=== PATIENT | female | born 1955 | race Caucasian/White ===

== ENCOUNTER 2019-05-21 21:10 | Emergency (ER) | payer BC, OTHER ==
[2019-05-21] MEDS ORDERED: HYDROMORPHONE HCL 2 MG/ML VIAL IM ONE (21:20)
--- NOTE | 2019-05-21 21:29 | Emergency Department Record ---
History of Present Illness - General Chief Complaint: Back Pain/Injury Stated Complaint: BACK PAIN Time Seen by Provider: 05/21/19 21:11 Source: Patient Mode of Arrival: Ambulatory Limitations: No limitations - History of Present Illness Initial Comments: 63 yo female presents to ED for evaluation of worsening mid-back pain symptoms. Patient denies injury, however patient reports that she saw her surgeon at [facility] for flexion/extension views of the spine earlier today,w as told that she had "excessive movement" in the spine resulting in her pain symptoms. Patient is s/p fusion from L2-S1 as well, and is scheduled for surgery in 1 week. Patient reports that neither her PCP or her surgeon will treat her pain symptoms with anything stronger than Ibuprofen until her surgey in 1 week. MD Complaint: Back pain Onset/Timin -: Month(s) Similar Symptoms Previously: Yes Severity scale (1-10): 10 Quality: Sharp, Stabbing Consistency: Constant Improves With: None Worsens With: Movement Context: Other Associated Symptoms: Denies other symptoms Treatments Prior to Arrival: NSAIDS - Related Data Home Medications Medication Instructions Recorded Confirmed Last Taken Alendronate Sodium [Fosamax] 70 mg PO WEEKLY 05/21/19 05/21/19 05/18/19 Clonazepam [Klonopin] 0.5 mg PO TID PRN 05/21/19 05/21/19 05/21/19 Gabapentin [Neurontin] 400 mg PO QID 05/21/19 05/21/19 05/21/19 Venlafaxine HCl [Effexor Xr] 225 mg PO DAILY 05/21/19 05/21/19 05/21/19 Allergies Allergy/AdvReac Type Severity Reaction Status Date / Time ketorolac [From Toradol] Allergy RASH Verified 05/21/19 21:23 sertraline HCl [From Zoloft] Allergy RASH Verified 05/10/17 13:19 Sulfa (Sulfonamide Allergy RASH Verified 05/10/17 13:19 Antibiotics) morphine AdvReac RASH Verified 05/21/19 21:23 omeprazole AdvReac mouth sores Verified 05/10/17 13:19 Travel Screening - Travel/Exposure Within Last 30 Days Have you traveled within the last 30 days?: No - Travel/Exposure Within Last Year Have you traveled outside the [place] in the last year?: No - Additonal Travel Details Have you been exposed to anyone with a communicable illness?: No - Travel Symptoms Symptom Screening: None Review of Systems Constitutional: Denies: Chills, Fever, Malaise, Night sweats Eyes: Denies: Eye discharge, Eye pain ENT: Denies: Congestion, Ear pain, Epistaxis Respiratory: Denies: Cough, Dyspnea Cardiovascular: Denies: Chest pain, Dyspnea on exertion Endocrine: Denies: Fatigue, Heat or cold intolerance Gastrointestinal: Denies: Abdominal pain, Nausea, Vomiting Genitourinary: Denies: Incontinence, Retention Musculoskeletal: Reports: Back pain. Denies: Arthralgia, Gout, Joint swelling Skin: Denies: Bruising, Change in color Neurological: Denies: Abnormal gait, Confusion, Headache, Seizure Psychiatric: Denies: Anxiety Hematological/Lymphatic: Denies: Anemia, Blood Clots Past Medical History - SOCIAL HISTORY Smoking Status: Light tobacco smoker (<10/day) Alcohol Use: None Drug Use: None - RESPIRATORY Hx Respiratory Disorders: No - CARDIOVASCULAR Hx Cardio Disorders: No Hx Hypertension: Yes - NEURO Hx Neuro Disorders: No - GI Hx GI Disorders: No - Hx Genitourinary Disorders: No - ENDOCRINE Hx Endocrine Disorders: No - MUSCULOSKELETAL Hx Musculoskeletal Disorders: Yes Hx Arthritis: Yes Hx Fibromyalgia: Yes - PSYCH Hx Psych Problems: No - HEMATOLOGY/ONCOLOGY Hx Hematology/Oncology Disorders: No Family Medical History Any Significant Family History?: Yes Hx Heart Disease: Father, Brother/Sister Physical Exam - General General Appearance: Alert, Oriented x3, Cooperative, Mild distress Limitations: No limitations - Head Head exam: Atraumatic, Normocephalic, Normal inspection Head exam detail: negative: Abrasion, Contusion, Bowers's sign, General tenderness, Hematoma, Laceration - Eye Eye exam: Normal appearance. negative: Conjunctival injection, Periorbital swelling, Periorbital tenderness, Scleral icterus - ENT Ear exam: negative: Auricular hematoma, Auricular trauma Nasal Exam: negative: Active bleeding, Discharge, Dried blood, Foreign body Mouth exam: negative: Drooling, Laceration, Muffled voice, Tongue elevation - Neck Neck exam: Normal inspection. negative: Meningismus, Tenderness - Respiratory Respiratory exam: Normal lung sounds bilaterally. negative: Rales, Respiratory distress, Rhonchi, Stridor - Cardiovascular Cardiovascular Exam: Regular rate, Normal rhythm, Normal heart sounds - GI/Abdominal GI/Abdominal exam: Soft. negative: Rebound, Rigid, Tenderness - Rectal Rectal exam: Deferred - exam: Deferred - Extremities Extremities exam: negative: Pedal edema, Tenderness - Back Back exam: Reports: Tenderness (Mild diffuse midline tenderness to palpation from lower cervical region to the lower thoracic region on examination.). Denies: CVA tenderness (R), CVA tenderness (L) - Neurological Neurological exam: Alert, Normal gait, Oriented X3 - Psychiatric Psychiatric exam: Normal affect, Normal mood - Skin Skin exam: Normal color. negative: Abrasion Type of lesion: negative: abrasion Course Vital Signs 05/21/19 21:15 Temperature 98.2 F Pulse Rate [ 92 H Pulse Ox Probe] Respiratory 20 Rate Blood Pressure 144/106 [Left Arm] Pulse Ox 97 - Reevaluation(s) Reevaluation #1: 05/21/19 21:28 MAPS was reviewed: Clonezapam 0.5 mg #90 filled 05/01 Reevaluation #2: 05/21/19 22:01 Patient was reassessed, resting comfortably watching television on her mobile phone. Patient appears stable for discharge with instructions to follow-up with her spine surgeon tomorrow for further recommendations on control of her chronic back pain symptoms. Patient appears stable for discharge at this time. Disposition Disposition: Discharge Clinical Impression: Chronic back pain Qualifiers: Back pain location: thoracic back pain Back pain laterality: midline Qualified Code(s): M54.6 - Pain in thoracic spine Disposition: Home, Self-Care Condition: (2) Stable Instructions: Degenerative Disc Disease (ED) Additional Instructions: Return to ED if your symptoms worsen or if you have any concerns. Follow-up with your family doctor in 3-5 days as directed. Forms: Patient Portal Access Time of Disposition: 21:29 Quality - Quality Measures Quality Measures: N/A - Blood Pressure Screening Does Patient Have Any of the Following: No Blood Pressure Classification: Hypertensive Reading Systolic Measurement: 144 Diastolic Measurement: 106 Screening for High Blood Pressure: < First Hypertensive BP, F/U Documented > [G8950] First Hypertensive Follow-up Interventions: Referral to alternative/primary care provider.
== END 2019-05-21 22:15 | disposition home or self-care (01) ==
LOC: ER 21:10
DX: G89.29 Other chronic pain (principal); M54.6 Pain in thoracic spine; Z98.1 Arthrodesis status; F17.210 Nicotine dependence, cigarettes, uncomplicated
CPT/HCPCS: 99284 ×2; 96372; J1170

== ENCOUNTER 2019-05-27 18:04 | Emergency (ER) | payer BC ==
[2019-05-27] MEDS ORDERED: HYDROMORPHONE HCL 2 MG/ML VIAL IM ONE (18:48)
[2019-05-27] MEDS ORDERED: ONDANSETRON 4 MG ODT TABLET SL ONE (18:49)
--- NOTE | 2019-05-27 18:54 | Emergency Department Record ---
History of Present Illness - General Stated Complaint: FALL/THIS AM Time Seen by Provider: 05/27/19 18:47 Source: Patient Mode of Arrival: Ambulatory Limitations: No limitations - History of Present Illness Initial Comments: 63 yo female presents to ED for evaluation of back pain following a fall this morning. Patient reports a history of chronic back pain symptoms, reports that she is due to have back surgery in [address] Varela. Patient called her surgeon this morning after her fall, was told to come to the ED for evaluation and "pain control". Patient denies numbness over the groin region, lower extremity weakness, or urinary incontinence. 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 Witnessed: No Place Fall Occurred: Home Loss of Consciousness: None Prolonged Down Time?: No Symptoms Prior to Fall: None Severity: Moderate Quality: Aching - [place] Coma Scale Eye Response: (4) Open spontaneously Motor Response: (6) Obeys commands Verbal Response: (5) Oriented [place] Total: 15 - Related Data Allergies Allergy/AdvReac Type Severity Reaction Status Date / Time ketorolac [From Toradol] Allergy RASH Verified 05/27/19 19:05 sertraline HCl [From Zoloft] Allergy RASH Verified 05/27/19 19:05 Sulfa (Sulfonamide Allergy RASH Verified 05/27/19 19:05 Antibiotics) morphine AdvReac RASH Verified 05/27/19 19:05 omeprazole AdvReac mouth sores Verified 05/27/19 19:05 Review of Systems Constitutional: Denies: Chills, Fever, Malaise, Night sweats Eyes: Denies: Eye discharge, Eye pain ENT: Denies: Congestion, Ear pain, Epistaxis Respiratory: Denies: Cough, Dyspnea Cardiovascular: Denies: Chest pain, Dyspnea on exertion Endocrine: Denies: Fatigue, Heat or cold intolerance Gastrointestinal: Denies: Abdominal pain, Nausea, Vomiting Genitourinary: Denies: Incontinence, Retention Musculoskeletal: Reports: Back pain. Denies: Arthralgia Skin: Denies: Bruising, Change in color Neurological: Denies: Abnormal gait, Confusion, Headache, Tingling, Tremors Psychiatric: Denies: Anxiety Hematological/Lymphatic: Denies: Anemia, Blood Clots Past Medical History - SOCIAL HISTORY Smoking Status: Light tobacco smoker (<10/day) - RESPIRATORY Hx Respiratory Disorders: No - CARDIOVASCULAR Hx Cardio Disorders: No Hx Hypertension: Yes - NEURO Hx Neuro Disorders: No - GI Hx GI Disorders: No - Hx Genitourinary Disorders: No - ENDOCRINE Hx Endocrine Disorders: No - MUSCULOSKELETAL Hx Musculoskeletal Disorders: Yes Hx Arthritis: Yes Hx Fibromyalgia: Yes - PSYCH Hx Psych Problems: No - HEMATOLOGY/ONCOLOGY Hx Hematology/Oncology Disorders: No Family Medical History Hx Heart Disease: Father, Brother/Sister Physical Exam - General General Appearance: Alert, Oriented x3, Cooperative, Mild distress, Anxious, Other (Ambulates with steady gait on examination with rolling walker smiling, quickly turns tearful into eh room while discussing her fall.) Limitations: No limitations - Head Head exam: Atraumatic, Normocephalic, Normal inspection Head exam detail: negative: Abrasion, Contusion, Bowers's sign, General tenderness, Hematoma, Laceration - Eye Eye exam: Normal appearance. negative: Conjunctival injection, Periorbital swelling, Periorbital tenderness, Scleral icterus - ENT Ear exam: negative: Auricular hematoma, Auricular trauma Nasal Exam: negative: Active bleeding, Discharge, Dried blood, Foreign body Mouth exam: negative: Drooling, Laceration, Muffled voice, Tongue elevation - Neck Neck exam: Normal inspection. negative: Meningismus, Tenderness - Respiratory Respiratory exam: Normal lung sounds bilaterally. negative: Respiratory distress, Rhonchi, Stridor, Wheezes - Cardiovascular Cardiovascular Exam: Regular rate, Normal rhythm, Normal heart sounds - GI/Abdominal GI/Abdominal exam: Soft. negative: Distended, Rebound, Rigid, Tenderness - Rectal Rectal exam: Deferred - exam: Deferred - Extremities Extremities exam: Normal inspection. negative: Pedal edema, Tenderness - Back Back exam: Reports: Tenderness (TTP lumbar region on examination, no objective signs of trauma on examination, well-healed scar to the lower back on examination.). Denies: CVA tenderness (R), CVA tenderness (L) - Neurological Neurological exam: Alert, Normal gait, Oriented X3 - Psychiatric Psychiatric exam: Normal affect, Normal mood - Skin Skin exam: Normal color. negative: Abrasion Type of lesion: negative: abrasion Course - Reevaluation(s) Reevaluation #1: 05/27/19 20:42 Thoracic Spine: No acute traumatic injury Lumbar Spine: Stable post-operative changes No acute traumatic injury identified Patient was updated on her radiograph results, pain is improved. Patient appears stable for discharge with instructions to follow-up with her surgeon in 2 days as directed. Disposition Disposition: Discharge Clinical Impression: Contusion of back Qualifiers: Encounter type: initial encounter Laterality: unspecified laterality Qualified Code(s): S20.229A - Contusion of unspecified back wall of thorax, initial encounter Chronic back pain Qualifiers: Back pain location: low back pain Back pain laterality: bilateral Sciatica presence: without sciatica Qualified Code(s): M54.5 - Low back pain Condition: (2) Stable Instructions: Contusion in Adults (ED) Additional Instructions: Return to ED if your symptoms worsen or if you have any concerns. Continue your home medications for pain as prescribed. Follow-up with Dr. Varela in 2 days as scheduled. Time of Disposition: 20:44 Quality - Quality Measures Quality Measures: N/A - Blood Pressure Screening Does Patient Have Any of the Following: No Blood Pressure Classification: Pre-Hypertensive BP Reading Systolic Measurement: 122 Diastolic Measurement: 78 Screening for High Blood Pressure: < Pre-Hypertensive BP, F/U Documented > [G8950] Pre-Hypertensive Follow-up Interventions: Referral to alternative/primary care provider.
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
== END 2019-05-27 20:54 | disposition home or self-care (01) ==
LOC: ER 18:04
DX: S20.229A Contusion of unspecified back wall of thorax, initial encounter (principal); M54.5 Low back pain; G89.29 Other chronic pain; I10 Essential (primary) hypertension; F17.210 Nicotine dependence, cigarettes, uncomplicated; W19.XXXA Unspecified fall, initial encounter; Y92.009 Unspecified place in unspecified non-institutional (private) residence as the place of occurrence of the external cause
CPT/HCPCS: 99284 ×2; 96372; 72110; 72072; J1170

== ENCOUNTER 2019-07-13 20:56 | Emergency (ER) | payer SELFPAY ==
[2019-07-13] MEDS ORDERED: Diph,Pert(Acell),Tet Vac 0.5 ML SYR IM ONE (21:25)
[2019-07-13] MEDS ORDERED: ACETAMINOPHEN 1,000 MG/100 ML BTL IVPB ONE (21:25)
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
[2019-07-13 21:32] LABS: ABSOLUTE NEUTROPHIL COUNT 5.07; BASO % 0.1 % (0-6); EOS % 2.6 % (0-6); GRAN % 64.9 % (47-80); HEMATOCRIT 38.1 % (35.0-47.0); LYMPH % 26.5 % (16-45); MEAN CELL VOLUME 97.9 fl (81-97); MEAN CORPUSCULAR HEMOGLOBIN 30.8 pg (27-33); MEAN CORPUSCULAR HGB CONC 31.5 g/dl (32-36); MEAN PLATELET VOLUME 11.5 fl (7.4-10.4); MONO % 5.9 % (0-9); PLATELET COUNT 203 K/uL (130-400); RED BLOOD COUNT 3.89 M/uL (3.80-5.40); WHITE BLOOD COUNT W/O DIFF 7.8 K/uL (4.2-12.2)
[2019-07-13 21:50] LABS: ALB/GLOB RATIO 1.4 (1.1-1.8); ALBUMIN 3.9 g/dL (4.0-5.0); ALKALINE PHOSPHATASE 124 U/L (35-104); ALT/SGPT 8 U/L (<33); AST/SGOT 15 U/L (10.0-35.0); BLOOD UREA NITROGEN 12 mg/dL (8-23); CREATININE 0.5 mg/dL (0.5-0.9); EST GLOMERULAR FILTRATION RATE > 60 mL/min; GLUCOSE,RANDOM 100 mg/dL (74-109); TOTAL PROTEIN 6.6 g/dL (6.6-8.7)
[2019-07-13] MEDS ORDERED: POTASSIUM CHLORIDE 20 MEQ TABLET PO ONE (22:08)
[2019-07-13 22:58] LABS: AMPHETAMINE SCREEN URINE NOT DETECTED; BARBITURATE SCREEN URINE DETECTED; BENZODIAZEPINE SCREEN URINE NOT DETECTED; COCAINE SCREEN URINE NOT DETECTED; METHADONE SCREEN URINE NOT DETECTED; METHAMPHETAMINE SCREEN NOT DETECTED; OPIATE SCREEN URINE NOT DETECTED; OXYCODONE SCREEN URINE DETECTED; PHENCYCLIDINE SCREEN URINE NOT DETECTED; PROPOXYPHENE SCREEN URINE NOT DETECTED; THC SCREEN URINE NOT DETECTED; TRICYCLIC ANTIDEPRESSANT SCRN NOT DETECTED; URINE APPEARANCE CLOUDY; URINE BILIRUBIN NEGATIVE (NEGATIVE); URINE BLOOD NEGATIVE (NEGATIVE); URINE COLOR YELLOW; URINE GLUCOSE (UA) NEGATIVE (NEGATIVE); URINE KETONE NEGATIVE (NEGATIVE); URINE LEUKOCYTE ESTERASE SMALL (NEGATIVE); URINE NITRITE NEGATIVE (NEGATIVE); URINE PROTEIN NEGATIVE (NEGATIVE); URINE UROBILINOGEN 0.2 E.U./dL (0.20 - 1.00)
[2019-07-13 23:06] LABS: URINE AMORPHOUS SEDIMENT 4+; URINE BACTERIA FEW; URINE EPITHELIAL CELLS 21 - 35 (FEW); URINE RBC 0 - 2 (NONE SEEN); URINE TRIPLE PHOSPHATE CRYSTAL 3+ /hpf
[2019-07-14] MEDS ORDERED: OXYCODONE HCL/APAP 5MG/325MG TABLET PO ONE (00:23)
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
== END 2019-07-14 01:06 | disposition left against medical advice (07) ==
LOC: ER 20:56
DX: S00.212A Abrasion of left eyelid and periocular area, initial encounter (principal); M54.6 Pain in thoracic spine; R10.9 Unspecified abdominal pain; G89.29 Other chronic pain; V48.5XXA Car driver injured in noncollision transport accident in traffic accident, initial encounter; Y92.410 Unspecified street and highway as the place of occurrence of the external cause; I10 Essential (primary) hypertension; F17.210 Nicotine dependence, cigarettes, uncomplicated
CPT/HCPCS: 70450; 72125; 74176; 80053; 80305; 81001; 85025; 90715; 96372; 96374; 99284

== ENCOUNTER 2019-08-27 09:17 | Day surgery (SDC) | payer BC ==
--- NOTE | 2019-08-27 07:03 | History and Physical - Ferro ---
CHIEF COMPLAINT/HISTORY OF CHIEF COMPLAINT: This patient presents with a history of an intractable post lumbar laminectomy radiculopathy. Due to the failure of therapy this patient is here for an implanted spinal catheter infusion trial with Hydromorphone to determine if the implantation of a permanent system can be of any value in pain control. PAST MEDICAL HISTORY: Bladder dysfunction, gastritis, depression, and difficulty sleeping. PAST SURGICAL HISTORY: Lumbar spinal surgery with hardware fusion from L2-L3 to L5-S1 with fusion of bilateral sacroiliac joints and hysterectomy. EMPLOYMENT STATUS: Disability. MEDICATIONS ON ADMISSION: List to be provided. ALLERGIES: MORPHINE, OMEPRAZOLE, SULFA, TORADOL, CLINORIL, AND SERTRALINE. FAMILY/PSYCHOSOCIAL HISTORY: Social history - Smoking and caffeine. Family history - Coronary artery disease and hypertension. SYSTEMS REVIEW: The patient seems appropriate in no acute distress. PHYSICAL EXAMINATION: Height is 5'6", weight is 150. No vital signs. HEENT: Within normal limits. LUNGS: Clear. HEART: Rapid and regular. ABDOMEN: Nontender. MUSCULOSKELETAL: Examination of the musculoskeletal system shows diffuse tenderness throughout the lumbar spine. Range of motion does produce pain throughout the low back and extending into both lower extremities. Ambulation - Assistive device utilized. NEUROLOGIC: Cranial nerves are intact. IMPRESSION: POST LUMBAR LAMINECTOMY SYNDROME, ICD-10 CODE 96.1 WITH RADICULOPATHY, ICD-10 CODE M54.16 AND M54.17. PLAN: The patient is here for an implanted spinal catheter infusion trial of Hydromorphone to determine if the implantation of a permanent system can be of any value in pain control. The procedure will require an overnight stay although an epidural blood patch is not likely to be feasible considering the extent of hardware. An intravenous caffeine infusion will be give postop as well as overnight while the patient is kept flat as a prophylactic measure. She will be discharged in the morning. The potential risks, side effects and complications have all been reviewed and discussed. The patient understands and has consented. She has been put in contact with a clinical specialist from [facility] who has also explained the procedure and its risks. cc: Dr. Angel aHndy and Dr. Sebastian Hansen JOB NUMBER: [id number] [facility]
[~2019-08-27 09:17] MED LIST: ACETAMINOPHEN 1,000 MG/100 ML BTL IVPB ONE; CEFAZOLIN 2 Gram 2 GM/50 ML BAG IVPB ONE; FAMOTIDINE 20MG TABLET PO ONE; HYDROMORPHONE PF 2MG/ML AMP 0.008 MG in 0.9 % SODIUM CHLORIDE 10ML VIA 0.996 ML IV ONE; HYDROMORPHONE PF 2MG/ML AMP 8 MG in 0.9 % SODIUM CHLORIDE 500ML 496 ML IV ONE; MECLIZINE 25 MG TABLET PO ONE; METOCLOPRAMIDE 10 MG TABLET PO ONE
[2019-08-27] MEDS ORDERED: *PACU ONLY* KETAMINE HCL 10 MG/ML (20ML) VIAL IV ONE (09:18)
[2019-08-27] MEDS ORDERED: LIDOCAINE 2% MDV (20MG/ML) 20ML VIAL IV ONE (09:18)
[2019-08-27] MEDS ORDERED: MIDAZOLAM HCL 2MG/2ML VIAL IV ONE (09:18)
[2019-08-27] MEDS ORDERED: PROPOFOL 10 MG/ML VIAL IV ONE (09:18)
[2019-08-27] MEDS ORDERED: FENTANYL PF 100MCG/2ML VIAL IV ONE (09:18)
[2019-08-27] MEDS ORDERED: RINGERS SOLUTION,LACTATED 1,000 ML IV ONE (10:00)
[2019-08-27] MEDS ORDERED: CEFAZOLIN 1G VIAL IR ONE (12:11)
[2019-08-27] MEDS ORDERED: CAFFEINE/SODIUM BENZOATE 250MG 500 MG in 0.9 % SODIUM CHLORIDE 100ML 100 ML IVPB ONE (12:50)
[2019-08-27] MEDS ORDERED: HYDROMORPHONE HCL 2 MG/ML VIAL IVP PRN (13:03)
[2019-08-27] MEDS ORDERED: CLONAZEPAM 1MG TABLET PO PRN (13:55)
[2019-08-27] MEDS ORDERED: OXYCODONE/APAP 10MG-325MG TABLET PO PRN (14:00)
[2019-08-27] MEDS ORDERED: DIPHENHYDRAMINE HCL 25 MG CAPSULE PO PRN ×2 (14:00)
[2019-08-27] MEDS ORDERED: DIPHENHYDRAMINE HCL 50 MG/ML VIAL IVP PRN ×2 (14:00)
[2019-08-27] MEDS ORDERED: HYDROCODONE/APAP 7.5/325MG TABLET PO PRN ×2 (14:00)
[2019-08-27] MEDS ORDERED: HYDROMORPHONE HCL 2 MG/ML VIAL IM PRN ×2 (14:00)
[2019-08-27] MEDS ORDERED: NALOXONE 0.4 MG/1 ML VIAL IVP PRN (14:00)
[2019-08-27] MEDS ORDERED: ACETAMINOPHEN 325 MG TAB PO PRN (14:00)
[2019-08-27] MEDS ORDERED: SENNOSIDES/DOCUSATE SODIUM UD CAPSULE PO PRN ×2 (14:00)
[2019-08-27] MEDS ORDERED: METOCLOPRAMIDE HCL 10 MG/2 ML VIAL IVP PRN (14:00)
[2019-08-27] MEDS ORDERED: GABAPENTIN 300 MG CAPSULE PO SCH ×2 (14:00→22:00)
[2019-08-27] MEDS ORDERED: GABAPENTIN 100 MG CAPSULE PO SCH ×2 (14:00→22:00)
[2019-08-27] MEDS ORDERED: TEMAZEPAM 15 MG CAPSULE PO PRN (14:00)
[2019-08-27] MEDS ORDERED: METOCLOPRAMIDE 10 MG TABLET PO PRN (14:00)
[2019-08-27] MEDS ORDERED: AL HYDROX/MAG HYDROX 30ML UD PO PRN (14:00)
[2019-08-27] MEDS ORDERED: NICOTINE 21 MG/24 HOUR PATCH TD SCH (14:00)
--- NOTE | 2019-08-27 14:27 | Operative Note - Ferro ---
DATE OF SURGERY: 08/27/2019 PREOPERATIVE DIAGNOSIS: POST LUMBAR LAMINECTOMY SYNDROME, ICD-10 CODE M96.1 WITH LUMBAR RADICULOPATHY, ICD-10 CODE M54.16 AND M54.17. OPERATION: 1. FLUOROSCOPICALLY GUIDED ACCESS SPINAL SPACE AT L3-L4, PLACEMENT OF THIN WALLED SPINAL CATHETER TO T11-T12. 2. DIAGNOSTIC MYELOGRAPHY WITH RADIOLOGIC SUPERVISION AND INTERPRETATION. 3. SPINAL OPIOID BOLUS HYDROMORPHONE 0.0075 MG INTO SPINAL SPACE. 4. INCISION, SUBCUTANEOUS DISSECTION, ANCHORING SPINAL CATHETER TO THE SUPRASPINOUS FASCIA WITH A PlistenTRONIC ANCHOR AND NONABSORBABLE SUTURE. 5. INCISION, SUBCUTANEOUS DISSECTION, AND CREATION OF SUBCUTANEOUS POUCH RIGHT FLANK ULTIMATELY FOR PUMP, CREATION OF SUBCUTANEOUS POUCH. 6. TUNNELLING BETWEEN MIDLINE SPINAL CATHETER AND RIGHT FLANK POUCH EXTENDING CATHETER INTO FLANK POUCH. 7. INTERFACE CATHETER AT POUCH WITH CONNECTOR AND SECOND CATHETER COMPONENT, TUNNELLING SECOND CATHETER COMPONENTS 6 CM SUPERIOR EXITING SKIN, INTERFACE EXTERNAL CATHETER TO EXTERNAL PUMP SET TO DELIVER HYDROMORPHONE AT 0.16 MG A DAY. 8. CLOSURE OF MIDLINE INCISION USING VICRYL FOR FASCIA AND ROBERT FOR SKIN. CLOSURE OF FLANK INCISION USING RUNNING NYLON. 9. PLACEMENT OF DRESSINGS SECURING CATHETER WELL INCISIONS UNDER STERILE DRESSING, ALL CATHETER CONNECTIONS UNDER STERILE DRESSING. 10. NO EPIDURAL BLOOD PATCH BECAUSE OF LACK OF ACCESS. SURGEON: Naren Ron D.O. ANESTHESIA: Local sedation. ANESTHESIA PROVIDER: CRISPIN Cruz CRNA INDICATION: This patient presents with a history of intractable post lumbar laminectomy with radiculopathy. Diagnostics confirm roughly 8-10 levels of pedicle screw and rods in thoracic and lumbar spine. Due to the failure of all therapies and by referral from her orthopedic spine surgeon, Dr. Hansen, she is here for an implanted spinal catheter infusion trial of Hydromorphone to determine if the implantation of a permanent device would be of any value in pain control. PROCEDURE: Intravenous venous line, vital sign monitoring, IV sedation, prepped and draped, sterile technique. The patient was positioned prone. Sterile prep. Sterile technique. Under imaging the spinal interspace at L3-L4 was marked, infiltrated with a local, and then a 20-gauge spinal needle paramedian approach beveled long axis into the spinal space. This was determined by AP and lateral imaging. The needle was advanced on lateral imaging. With CSF flow, a thin walled spinal catheter was advanced, positioned at T11-T12. Diagnostic myelography confirming appropriate flow characteristics, CSF flow through the catheter noted. With this confirmation, a bolus of Hydromorphone was given into the spinal space, 0.007 mg given. The catheter was clamped to stop CSF leak. The needle was removed, and the catheter was anchored to the supraspinous fascia with an anchoring device and nonabsorbable suture. The right flank ultimately for the pump site picked by patient, the skin was infiltrated, incision made and subcutaneous dissection was conducted to form a pouch superficial. The midline spinal catheter was tunnelled into the flank pouch and then interfaced with a second catheter component by way of a connector. The second catheter component was tunnelled 6 cm superior exiting skin. The external catheter component was interfaced with an external pump which was set to deliver Hydromorphone at 0.16 mg a day. The midline incision was closed with Vicryl for fascia, and robert for skin. The flank incision was closed with running nylon. Dressings were placed over the incisions as well as securing the catheter and all connections under sterile dressing. No blood patch because of lack of access. She was transported flat, pillow under head and knees. Will stay flat for four and slowly elevated for one. She was given intravenous caffeine by protocol in Recovery and will be given intravenous caffeine on the floor by protocol. She will be monitored and then discharged in the morning. DISCHARGE INSTRUCTIONS: 1. The sites are to remain clean and dry. No showering or bathing in any way that would disrupt dressings. If it happens contact the clinic. 2. Standard medications resumed including the antibiotic Levaquin, 500 mg one a day for fourteen days. 3. Office to contact the patient at home in the morning and set up her first increase, over the next two weeks there will be a total of three increases that will be set up if necessary. Her first increase as stated as quickly as the end of this week. At the end of the two week trial period we will either implant the full device or remove the implanted catheter. She has been given a prescription for [place] to help manage her incisional pain. All other instructions provided. Numbers to contact if problems given. She will be discharged in the morning, but will be kept overnight by protocol. cc: Dr. Angel Handy and Dr. Sebastian Hansen JOB [facility]BER: [id number] [facility]
[2019-08-27] MEDS: OXYCODONE/APAP 10MG-325MG TABLET PO PRN ×2 (16:42→21:39)
[2019-08-27] MEDS ORDERED: CAFFEINE/SODIUM BENZOATE 250MG 500 MG in 0.9 % SODIUM CHLORIDE 100ML 100 ML IVP ONE (17:00)
[2019-08-27] MEDS: CEFAZOLIN 2 Gram 2 GM/50 ML BAG IVPB SCH (19:49)
[2019-08-27] MEDS ORDERED: TRAZODONE 50 MG TABLET PO SCH (22:00)
[2019-08-28] MEDS: OXYCODONE/APAP 10MG-325MG TABLET PO PRN ×2 (02:01→08:25)
[2019-08-28] MEDS: CEFAZOLIN 2 Gram 2 GM/50 ML BAG IVPB SCH (03:48)
[2019-08-28] MEDS: RINGERS SOLUTION,LACTATED 1,000 ML IV SCH ×2 (03:52→03:56)
[2019-08-28] MEDS ORDERED: VENLAFAXINE ER 75 MG CAPSULE PO SCH (10:00)
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
== END 2019-08-28 11:38 | disposition home or self-care (01) ==
LOC: SUR 09:17 → MEDSURG 14:10 → SUR 08-28 11:38
PROVIDERS: ATTEND Pain Medicine Interventional Pain Medicine
DX: M96.1 Postlaminectomy syndrome, not elsewhere classified (principal); M54.16 Radiculopathy, lumbar region; M54.17 Radiculopathy, lumbosacral region; B19.20 Unspecified viral hepatitis C without hepatic coma; F32.9 Major depressive disorder, single episode, unspecified; F17.210 Nicotine dependence, cigarettes, uncomplicated
CPT/HCPCS: 72020; J0690; J1170; J3490; J7040; J7120

== ENCOUNTER 2019-09-10 09:41 | Day surgery (SDC) | payer BC ==
--- NOTE | 2019-09-10 06:52 | History and Physical - Ferro ---
CHIEF COMPLAINT/HISTORY OF CHIEF COMPLAINT: This patient with a history of intractable post lumbar laminectomy syndrome has an implanted catheter infusion trial with Hydromorphone which is ongoing. She has achieved 75+% pain control. Due to the failure of other therapies and the success of the implanted catheter trial, she presents today for implantation of a permanent system. PAST MEDICAL HISTORY: Unchanged. PAST SURGICAL HISTORY: Unchanged. EMPLOYMENT STATUS: Disability. MEDICATIONS ON ADMISSION: Unchanged. ALLERGIES: MORPHINE, OMEPRAZOLE, SULFA, TORADOL, CLINORIL, AND SERTRALINE. FAMILY/PSYCHOSOCIAL HISTORY: Family history - Unchanged. Social history - Unchanged. SYSTEMS REVIEW: The patient seems appropriate. PHYSICAL EXAMINATION: Height is 5'6", weight is 150. No vital signs. HEENT: Within normal limits. LUNGS: Clear. HEART: Rapid and regular. ABDOMEN: Nontender. MUSCULOSKELETAL: Examination of the musculoskeletal system shows diffuse tenderness throughout the entire lumbar spine and lower extremities. Dressings for an implanted catheter trial are in place and intact. Infusion device functioning properly. NEUROLOGIC: Cranial nerves are intact. IMPRESSION: 1. POST LUMBAR LAMINECTOMY SYNDROME, ICD-10 CODE 96.1 WITH RADICULOPATHY, ICD- 10 CODE M54.16 AND M54.17. 2. IMPLANTED SPINAL CATHETER INFUSION TRIAL OF HYDROMORPHONE. PLAN: With success of the trial, the patient is here for a permanent implant. The procedure will be considered outpatient, although an overnight stay will be evaluated. The risks, side effects and complications have all been reviewed and discussed. cc: Dr. Angel Handy and Dr. Sebastian Hansen JOB NUMBER: [id number] [facility]
[~2019-09-10 09:41] MED LIST changes: +HYDROMORPHONE HCL 0.04 GM in 0.9 % SODIUM CHLORIDE 10ML VIA 20 ML IV ONE; -HYDROMORPHONE PF 2MG/ML AMP 8 MG in 0.9 % SODIUM CHLORIDE 500ML 496 ML IV ONE
[2019-09-10] MEDS ORDERED: PROPOFOL 10 MG/ML VIAL IV ONE (09:42)
[2019-09-10] MEDS ORDERED: LIDOCAINE 2% MDV (20MG/ML) 20ML VIAL IV ONE (09:42)
[2019-09-10] MEDS ORDERED: FENTANYL PF 100MCG/2ML VIAL IV ONE (09:42)
[2019-09-10] MEDS ORDERED: HYDROMORPHONE HCL 2 MG/ML VIAL IV ONE (09:42)
[2019-09-10] MEDS ORDERED: MIDAZOLAM HCL 2MG/2ML VIAL IV ONE (09:42)
[2019-09-10] MEDS ORDERED: RINGERS SOLUTION,LACTATED 1,000 ML IV ONE (10:38)
[2019-09-10] MEDS ORDERED: LIDOCAINE 1% W/EPI 1:200,000 MPF 30ML SQ ONE (12:11)
[2019-09-10] MEDS ORDERED: CEFAZOLIN 1G VIAL IR ONE (12:12)
[2019-09-10] MEDS ORDERED: BUPIVACAINE 0.5% W/EPI MPF 30 ML VIAL SQ ONE (12:12)
[2019-09-10] MEDS ORDERED: OXYCODONE/APAP 10MG-325MG TABLET PO ONE (13:42)
[2019-09-10] MEDS ORDERED: HYDROMORPHONE HCL 2 MG/ML VIAL IM ONE (13:42)
--- NOTE | 2019-09-10 19:24 | RADIOLOGY REPORT ---
EXAMINATION: Lumbar spine, 2 views EXAM DATE: 09/10/2019 1:14 PM TECHNIQUE: Bilateral oblique views of the lumbar spine INDICATION: S/P PAIN PUMP IMPLANT COMPARISON: Lumbar spine radiographs 08/27/2019 ENCOUNTER: Initial FINDINGS/IMPRESSION: Mild levoconvex curvature of the lumbar spine. Posterior thoracolumbar fusion without appreciable silvia dware fractures or adjacent lucency. Interval placement of pain pump implant with catheter tip termin ating at the T12-L1 level. Apparent kinking of the catheter at the entry site, may be projectional. Dictated by: Cesilia Nath MD on 09/10/2019 7:19 PM. .
--- NOTE | 2019-09-11 07:42 | Operative Note - Ferro ---
DATE OF SURGERY: 09/10/2019 PREOPERATIVE DIAGNOSIS: 1. POST LUMBAR LAMINECTOMY - INFUSION SYNDROME WITH INTRACTABLE LUMBAR RADICULOPATHY, ICD-10 CODE M96.1 WITH M54.16 AND M54.17. 2. IMPLANTED SPINAL CATHETER INFUSION TRIAL HYDROMORPHONE. OPERATION: 1. FLUOROSCOPICALLY GUIDED INCISION, SUBCUTANEOUS DISSECTION AND REMOVAL OF EXTERNALIZED SPINAL CATHETER. 2. INCISION, SUBCUTANEOUS DISSECTION, AND CREATION OF SUBCUTANEOUS POUCH RIGHT FLANK FOR PLACEMENT OF PUMP IDENTIFIED A MEDTRONIC 20 ML PROGRAMMABLE. 3. INCISION, SUBCUTANEOUS DISSECTION WITH REVISION OF INDWELLING SPINAL CATHETER WITH SECOND CATHETER COMPONENT AND CONNECTOR. 4. PLACEMENT OF 20 ML PROGRAMMABLE MEDTRONIC PUMP PRE-FILLED HYDROMORPHONE 2 MG PER ML ONTO FIELD, INTERFACED TO REVISED CATHETER. 5. PLACEMENT OF PUMP CATHETER COMBINATION INTO FLANK POUCH, SECURED TO POSTERIOR FASCIA WITH NONABSORBABLE SUTURE THREE POINTS PUMP EYELETS. 6. WITH PUMP INTO POUCH PLACEMENT OF CURVED 24-GAUGE WHITFIELD NEEDLE ACCESSED PORT ASPIRATION CLEARING CATHETER OF OPIOID AND CSF MIXTURE. 7. DIAGNOSTIC MYELOGRAPHY WITH RADIOLOGIC SUPERVISION AND INTERPRETATION CONFIRMING CATHETER PUMP FUNCTIONALITY. 8. CLOSURE OF INCISION USING 2-0 VICRYL FOR FASCIA AND ROBERT FOR SKIN. 9. PROGRAMMING OF PUMP TO DELIVER BY CONTINUOUS INFUSION HYDROMORPHONE AT 0.69 MG A DAY. SURGEON: Naren Ron D.O. ANESTHESIA: Local sedation. ANESTHESIA PROVIDER: CRISPIN Cruz CRNA INDICATION: This patient presents with a history of infusion syndrome. Her imaging shows 10 levels of screws and rods thoracic and lumbar spine fusion. Due to the failure of therapy, she was referred for a pump trial, implanted catheter infusion trial Hydromorphone at 0.46 mg a day resulted in 75% pain control. Due to the failure of all therapies and obvious opioid dependency, the patient is here for implantation of a permanent system. PROCEDURE: Intravenous venous line, vital sign monitoring, IV sedation, prepped and draped, sterile technique. The patient was positioned prone. With the patient prone a pillow at her mid abdomen with, however, extensive fusion, there was limited flexion of the spine. A slight extension was noted. This made pouch formation somewhat difficult posterior. There was no appreciable tissue below the belt line. There was limited abdominal region for pump inferior. A posterior flank site was selected. The skin was infiltrated, incision made and subcutaneous dissection was conducted. The externalized catheter was then cut and from the permanent internal catheter pulling the external catheter away from the incision. The permanent indwelling catheter was then revised, resected with the second catheter component by way of a connector. The pouch was formed subcutaneously to accommodate a 20 ml programmable Medtronic pump. The 20 ml pump was placed onto the field, prefilled Hydromorphone 2 mg per ml. The pump was interfaced with the revised catheter. Antibiotic irrigation, Bovie for hemostasis. The pump was placed into the pouch at the flank and then secured to the posterior fascia with Ethibond suture nonabsorbable three points pump eyelets. With the pump in the pouch a 24-gauge Whitfield was inserted into the access port with a 3 ml syringe, 1 ml catheter contents was aspirated clearing the catheter of opioid and CSF mixture. Diagnostic myelography was performed through the access port, flow characteristics confirmed catheter position T8, and confirmed appropriate flow characteristics confirming functionality of the system. The incision was then closed using 2-0 Vicryl for fascia and robert for skin. Op-Site dressing was placed. She was transported to the Recovery Room stable. No side effects from the procedure or sedation. She was monitored until stable and prepared for discharge. DISCHARGE INSTRUCTIONS: 1. The sites are to remain clean and dry. No showering or bathing in any way that would disrupt dressings. If it happens contact the clinic. 2. Standard medications resumed. She has been provided with a [employer] script for postoperative incision management and provided with a script for Levaquin, antibiotic 500 mg once a day for the remainder of the fourteen day period. 3. Spinal opioid side effects: respiratory depression, nausea, vomiting, constipation, urinary retention, and rash have all been discussed and reviewed. 4. By her request she is prepared for discharge. Discharge instructions are provided. Office to contact in 12-24 hours to set up a time in 7-10 days for us to evaluate the sites. She will monitor for side effects from the spinal opioids as given. cc: Dr. Angel Handy and Dr. Sebastian Hansen JOB NUMBER: [id number] [facility]
== END 2019-09-10 14:15 | disposition home or self-care (01) ==
LOC: SUR 09:41
PROVIDERS: ATTEND Pain Medicine Interventional Pain Medicine
DX: M96.1 Postlaminectomy syndrome, not elsewhere classified (principal); M54.16 Radiculopathy, lumbar region; M54.17 Radiculopathy, lumbosacral region; B19.20 Unspecified viral hepatitis C without hepatic coma; F32.9 Major depressive disorder, single episode, unspecified; Z76.5 Malingerer [conscious simulation]; F17.210 Nicotine dependence, cigarettes, uncomplicated
CPT/HCPCS: 62367; 72020; C1755; C1776; J0690; J7120